=== PATIENT | female | born 1930 | race Caucasian/White ===

== ENCOUNTER 2018-03-27 21:59 | Inpatient (IN) | payer OTHER ==
[~2018-03-27] VITALS: Ht 167.6 cm; Wt 73.0 kg
[2018-03-28 00:16] LABS: PLATELET COUNT 249 x10^3mcL (130-400)
[2018-03-28 00:18] LABS: RED CELL DISTRIBUTION WIDTH 14.6 % (11.5-14.5)
[2018-03-28 00:32] LABS: CALCIUM 8.9 mg/dL (8.5-10.1); CARBON DIOXIDE 25.8 mmol/L (21-32); CHLORIDE SERUM 105 mmol/L (98-107); CREATININE SERUM 0.8 mg/dL (0.6-1.0); GLUCOSE SERUM 128 mg/dL (74-106); POTASSIUM SERUM 3.9 mmol/L (3.5-5.1); SODIUM SERUM 140 mmol/L (136-145)
[2018-03-28 00:37] LABS: ALBUMIN 3.7 g/dL (3.4-5.0); ALKALINE PHOSPHATASE 74 U/L (46-116); ALT/SGPT 22 U/L (14-59); AST/SGOT 18 U/L (15-37); BAND NEUTROPHIL 6 % (0-10); BILIRUBIN TOTAL 0.3 mg/dL (0.20-1.00); METAMYELOCTE 3 % (0-2); MONOCYTE 7 % (0-7); SEGMENTED NEUTROPHILS 80 % (37-75)
[2018-03-28 00:38] LABS: PLATELET MORPHOLOGY LARGE PLATELET SEEN; rbc morphology (normal/abnorm) NORMAL (NORMAL)
[2018-03-28] MEDS ORDERED: SIMVASTATIN10 M1 PO (00:47)
[2018-03-28] MEDS ORDERED: [UNRECOGNIZED DRUG - CODE] PO (00:49)
[2018-03-28 01:29] LABS: PHOSPHOROUS 3.4 mg/dL (2.5-4.9)
[2018-03-28 01:32] LABS: CHOLESTEROL/HDL RATIO 5.2
[2018-03-28 01:52] LABS: T3 TOTAL 1.03 ng/mL
[2018-03-28 03:48] LABS: FREE T4 1.08 ng/dL (0.76-1.46); FREE THYROXINE INDEX 2.8 ug/dL (1.4-4.5); T4(THYROXINE) 7.9 ug/dL (4.7-13.3)
[2018-03-28 05:41] VITALS: BP 156/74
[2018-03-28 06:58] LABS: CALCIUM 8.3 mg/dL (8.5-10.1); CARBON DIOXIDE 25.3 mmol/L (21-32); CHLORIDE SERUM 106 mmol/L (98-107); CREATININE SERUM 0.8 mg/dL (0.6-1.0); GLUCOSE SERUM 130 mg/dL (74-106); MAGNESIUM 2.1 mg/dL (1.8-2.4); PHOSPHOROUS 3.3 mg/dL (2.5-4.9); POTASSIUM SERUM 4.3 mmol/L (3.5-5.1); SODIUM SERUM 138 mmol/L (136-145)
[2018-03-28 07:28] LABS: BASOPHIL % 0.1 % (0-2); PLATELET COUNT 232 x10^3mcL (130-400); RED CELL DISTRIBUTION WIDTH 14.5 % (11.5-14.5)
[2018-03-28 09:01] VITALS: BP 180/84
[2018-03-28 12:31] VITALS: BP 124/70
[2018-03-28 17:38] VITALS: BP 141/70
[2018-03-28 21:23] VITALS: BP 149/66
[2018-03-28 23:13] LABS: UA SPECIFIC GRAVITY 1.025 (1.005-1.035); microscopic required? YES; urine erythrocyte NEGATIVE (NEGATIVE)
[2018-03-28 23:31] LABS: AMPHETAMINE QUAL UR NONE DETECTED (See below)
[2018-03-29 05:47] VITALS: BP 128/62
[2018-03-29 07:35] LABS: BASOPHIL % 0.5 % (0-2); PLATELET COUNT 207 x10^3mcL (130-400)
[2018-03-29 07:43] LABS: RED CELL DISTRIBUTION WIDTH 14.8 % (11.5-14.5)
[2018-03-29 08:00] VITALS: BP 143/63
[2018-03-29 08:10] LABS: CALCIUM 8.2 mg/dL (8.5-10.1); CARBON DIOXIDE 24.9 mmol/L (21-32); CHLORIDE SERUM 106 mmol/L (98-107); CREATININE SERUM 0.6 mg/dL (0.6-1.0); GLUCOSE SERUM 144 mg/dL (74-106); MAGNESIUM 1.9 mg/dL (1.8-2.4); PHOSPHOROUS 2.7 mg/dL (2.5-4.9); POTASSIUM SERUM 3.8 mmol/L (3.5-5.1); SODIUM SERUM 137 mmol/L (136-145)
[2018-03-29 13:40] VITALS: BP 113/71
[2018-03-29 17:35] VITALS: BP 152/80
[2018-03-29 21:03] VITALS: BP 133/76
[2018-03-30] VITALS (7 sets, daily range): BP systolic 120–152; BP diastolic 70–88
[2018-03-30 07:40] LABS: BASOPHIL % 0.6 % (0-2); PLATELET COUNT 199 x10^3mcL (130-400); RED CELL DISTRIBUTION WIDTH 14.3 % (11.5-14.5)
[2018-03-30 08:00] LABS: CALCIUM 8.3 mg/dL (8.5-10.1); CHLORIDE SERUM 104 mmol/L (98-107); CREATININE SERUM 0.6 mg/dL (0.6-1.0); GLUCOSE SERUM 102 mg/dL (74-106); PHOSPHOROUS 3.1 mg/dL (2.5-4.9); POTASSIUM SERUM 4.1 mmol/L (3.5-5.1); SODIUM SERUM 138 mmol/L (136-145)
[2018-03-30] MEDS ORDERED: LEV500 PO (18:43)
[2018-03-30] MEDS ORDERED: APAP/HYDROCODON1 T13 PO (18:44)
[2018-03-30] MEDS ORDERED: MOR2I IV (18:45)
== END 2018-03-30 20:45 | disposition home or self-care (01) | DRG 604 ==
LOC: ED 21:59 → DU 03-28 00:09
PROVIDERS: Family Medicine; Specialist
PROC: 0HQ0XZZ Repair Scalp Skin, External Approach (ICD-10-PCS; principal; 2018-03-28)
DX: S01.01XA Laceration without foreign body of scalp, initial encounter (principal); N17.0 Acute kidney failure with tubular necrosis; G90.8 Other disorders of autonomic nervous system; I16.0 Hypertensive urgency; E78.5 Hyperlipidemia, unspecified; Z66 Do not resuscitate; Z68.26 Body mass index [BMI] 26.0-26.9, adult; Z79.4 Long term (current) use of insulin; Z96.641 Presence of right artificial hip joint; Z96.651 Presence of right artificial knee joint; W10.8XXA Fall (on) (from) other stairs and steps, initial encounter; Y92.018 Other place in single-family (private) house as the place of occurrence of the external cause
CPT/HCPCS: 83880; 84439; 87804; 90715; 97110-GP; 97116-GP; 97530-GP; J2001; J2405; J3010; Q0092